=== PATIENT | male | born 1985 | race Caucasian/White ===

== ENCOUNTER 2017-07-29 11:59 | Emergency (ER) | payer MEDICAID ==
[~2017-07-29] VITALS: Ht 175.3 cm; Wt 80.0 kg
[2017-07-29] MEDS ORDERED: ACETAMINOPHEN 325MG TABLET PO ONE (12:45)
[2017-07-29 13:21] VITALS: BP 143/82
[2017-07-29] MEDS ORDERED: KETOROLAC 60MG/2ML VIAL IM ONE (13:30)
== END 2017-07-29 13:39 | disposition home or self-care (01) ==
LOC: ER 11:59
DX: J02.0 Streptococcal pharyngitis (principal); M54.2 Cervicalgia; R51 Headache; F17.200 Nicotine dependence, unspecified, uncomplicated; F15.10 Other stimulant abuse, uncomplicated
CPT/HCPCS: 87430; 96372; 99283; J1885